=== PATIENT | female | born 1945 | race Caucasian/White ===

== ENCOUNTER 2017-10-06 14:53 | Emergency (ER) | payer OTHER ==
[~2017-10-06] VITALS: Ht 160 cm; Wt 90.9 kg
[~2017-10-06 14:53] MED LIST: ASPIRIN EC325 MG PO; ATORVASTATIN CA40 MG PO; CETIRIZINE HCL10 M2 PO; DESYREL 150 MG150 MG PO; FLONASE16 G1 BOTH NARES; FUROSEMIDE20 MG PO; GABAPENTIN300 MG PO; HYDROCODON-ACE1 EA11 PO; HYDROCODON-ACE1 EAC7 PO; LISINOPRIL5 MG PO; LOVENOX40 MG/0.4 SC; NEURONTIN300 MG PO; PEPCID20 MG PO; PRAVACHOL80 MG PO; PRILOSEC20 MG PO; PROTONIX40 MG PO; REQUIP5 MG PO; SENNA PLUS TAB1 EACH PO; SERTRALINE HCL100 MG PO; ULTRAM50 MG PO; VIMOVO 500-201 EAC1 PO
[2017-10-06 15:59] LABS: HEMATOCRIT 35.6 % (36.0-46.0); MCH 32.2 PG (29.0-34.0); MCHC 33.7 G/DL (30.0-36.0); MCV 95.4 FL (83-99); NRBC (%) 0.3 /100 WBC (0-0); PLATELET COUNT 334 K/uL (156-360); RBC DIS.WIDTH-CV 14.7 % (11.8-14.6); RBC DIS.WIDTH-SD 51.9 % (39-53); RED BLOOD COUNT 3.73 M/uL (3.80-5.20); WHITE BLOOD COUNT 7.9 K/uL (4.1-10.2)
[2017-10-06 16:08] LABS: CHLORIDE 105 mEq/L (99-109); POTASSIUM 4.1 mEq/L (3.7-5.4); SODIUM 139 mEq/L (136-147)
[2017-10-06 16:10] LABS: GLUCOSE 91 mg/dL (70-99)
[2017-10-06 16:14] LABS: CREATININE 0.7 mg/dL (0.6-1.3); GFR ESTIMATE (CALCULATED) > 59 mL/min/
[2017-10-06 16:15] LABS: UREA NITROGEN (BUN) 19 mg/dL (9-23)
[2017-10-06 16:24] LABS: TROP-I INTERPRETATION NEGATIVE; TROPONIN-I < 0.01 ng/mL (0.0-0.30)
[2017-10-06 17:49] LABS: ALBUMIN 4.2 g/dL (3.2-4.8)
[2017-10-06 17:52] LABS: TOTAL PROTEIN 7.7 g/dL (6.4-8.3)
[2017-10-06 17:54] LABS: TOTAL BILIRUBIN 0.2 mg/dL (0.0-1.0)
[2017-10-06 17:55] LABS: ALKALINE PHOSPHATASE 106 IU/L (3-129)
[2017-10-06 17:58] LABS: ALT (GPT) 17 IU/L (3-49); AST (GOT) 21 IU/L (2-34); DIRECT BILIRUBIN 0.1 mg/dL (0.0-0.3)
[2017-10-06 17:59] LABS: LIPASE 16 U/L (1.0-51.0)
[2017-10-06 20:32] LABS: TROP-I INTERPRETATION NEGATIVE; TROPONIN-I < 0.01 ng/mL (0.0-0.30)
[2017-10-06 20:45] LABS: APPEARANCE CLEAR ((CLEAR)); BILIRUBIN NEGATIVE; BLOOD NEGATIVE; COLOR STRAW ((YELLOW)); GLUCOSE (STRIP) NEGATIVE; KETONES NEGATIVE; LEUKOCYTES TRACE; NITRITE NEGATIVE; PROTEIN (STRIP) NEGATIVE; SPECIFIC GRAVITY 1.025 (1.000-1.030); UROBILINOGEN 0.2 MG/DL (0.2-1.0)
[2017-10-06 20:52] LABS: BACTERIA RARE /HPF; EPITHELIAL CELLS RARE /HPF; MUCUS NONE SEEN /LPF; RED BLOOD CELLS 0-5 /HPF (0-5); WHITE BLOOD CELLS 0-5 /HPF (0-5)
[2017-10-06 21:14] VITALS: BP 183/91
== END 2017-10-06 21:18 | disposition home or self-care (01) ==
LOC: EME 14:53
PROVIDERS: Physician Assistant
DX: M54.14 Radiculopathy, thoracic region (principal); R07.9 Chest pain, unspecified; I10 Essential (primary) hypertension; M79.601 Pain in right arm; E78.00 Pure hypercholesterolemia, unspecified; M48.00 Spinal stenosis, site unspecified; Z88.5 Allergy status to narcotic agent; Z88.6 Allergy status to analgesic agent
CPT/HCPCS: 71046; 71275; 80048; 80076; 81003; 83605; 83690; 83880; 84484; 85027; 85379; 87040; 93005; 93971; 99281; 99284; J7030